=== PATIENT | male | born 1935 | race Caucasian/White ===

== ENCOUNTER → 2016-12-05 | Outpatient (CLI) | payer MEDICARE, OTHER ==
[~2016-12-05] MED LIST: AMLO5TAB2 PO; ASPI81CH3 PO; BUPR75TA5 PO; CARV12.5 PO; COLA50CA PO; DOCU100C PO; FINA5TAB2 PO; FURO20TA2 PO; NEXI40CA PO; NITR4TASL SL; NITROLINGUAL SL; PERC5TAB6 PO; PRAV20TA2 PO; RAMI10CA PO; SPIR25TA2 PO; TAMS0.4C2 PO; TYLE325T5 PO; VITA100072 PO; VITA50003 PO; [UNRECOGNIZED DRUG - CODE] PO
== END ==
LOC: M RAD 11:07
PROVIDERS: ATTEND Physician Assistant
DX: I65.23 Occlusion and stenosis of bilateral carotid arteries (principal)

== ENCOUNTER → 2017-12-27 | Outpatient (REF) | payer MEDICARE, OTHER ==
[2017-12-27 16:57] LABS: BASO % 0.5 % (0.0-1.0); EOS # 0.2 10^3/uL (0.0-0.50); EOS % 3.7 % (0.0-3.0); HEMOGLOBIN 15.1 g/dl (13.5-17.5); IMMATURE GRANULOCYTE % 0.3 % (0-3.0); LYMPH # 1.1 10^3/uL (1.5-4.5); MEAN CORPUSCULAR HEMOGLOBIN 31.5 pg (27.0-33.0); MEAN CORPUSCULAR HGB CONC 35.1 g/dl (32.0-36.5); MEAN CORPUSCULAR VOLUME 89.6 fl (80.0-96.0); MONO # 0.4 10^3/uL (0.0-0.8); MONO % 7.4 % (0.0-5.0); NEUTROPHILS # 4.1 10^3/uL (1.8-7.7); NEUTROPHILS % 69.1 % (36.0-66.0); PLATELET COUNT, AUTOMATED 214 10^3/uL (150-450); RED CELL DISTRIBUTION WIDTH 12.4 % (11.5-14.5)
[2017-12-27 17:13] LABS: ESTIMATED AVERAGE GLUCOSE 134 MG/DL (60-110); HEMOGLOBIN A1c 6.3 %
[2017-12-27 17:34] LABS: ALBUMIN/GLOBULIN RATIO 1.21 (1.00-1.93); ALKALINE PHOSPHATASE 91 U/L (45-117); ALT/SGPT 31 U/L (12-78); ANION GAP 10 MEQ/L (8-16); AST/SGOT 17 U/L (7-37); BILIRUBIN,TOTAL 0.5 MG/DL (0.2-1.0); BLOOD UREA NITROGEN 20 MG/DL (7-18); CALCIUM LEVEL 9.4 MG/DL (8.8-10.2); CARBON DIOXIDE LEVEL 25 MEQ/L (21-32); CHLORIDE LEVEL 106 MEQ/L (98-107); CHOLESTEROL LEVEL 135 MG/DL (<200); CREATININE FOR GFR 1.86 MG/DL (0.70-1.30); GLOMERULAR FILTRATION RATE 37.4 (>35); GLUCOSE, FASTING 142 MG/DL (70-100); HDL CHOLESTEROL 36 MG/DL (>40); LDL CHOLESTEROL 59.8 MG/DL (<100); NON-HDL-C 99 MG/DL; POTASSIUM SERUM 4.6 MEQ/L (3.5-5.1); SODIUM LEVEL 141 MEQ/L (136-145); TOTAL PROTEIN 7.3 GM/DL (6.4-8.2); TRIGLYCERIDES LEVEL 196 MG/DL (<150)
[2017-12-27 22:32] LABS: TOTAL 25(OH) VITAMIN D 86.5 NG/ML (30.0-100.0)
== END ==
LOC: M SFHCCLAY 10:03
DX: I10 Essential (primary) hypertension (principal); E55.9 Vitamin D deficiency, unspecified; Z79.899 Other long term (current) drug therapy
CPT/HCPCS: 84443

== ENCOUNTER → 2018-01-25 | Outpatient (REF) | payer MEDICARE, OTHER | LOC: M SFHCCLAY 10:57 | DX: L97.919 Non-pressure chronic ulcer of unspecified part of right lower leg with unspecified severity (principal) | CPT/HCPCS: 87186 ==

== ENCOUNTER → 2018-02-11 | Outpatient (REF) | payer MEDICARE, OTHER | LOC: M SFHCCAPE 09:53 | DX: L97.919 Non-pressure chronic ulcer of unspecified part of right lower leg with unspecified severity (principal) | CPT/HCPCS: 87070; 87186 ==

== ENCOUNTER → 2018-03-28 | Outpatient (REF) | payer MEDICARE, OTHER ==
[2018-03-28 17:18] LABS: BASO % 0.5 % (0.0-1.0); EOS # 0.3 10^3/uL (0.0-0.50); EOS % 5.2 % (0.0-3.0); HEMATOCRIT 43.1 % (42.0-52.0); HEMOGLOBIN 14.8 g/dl (13.5-17.5); IMMATURE GRANULOCYTE % 0.7 % (0-3.0); LYMPH % 16.7 % (24.0-44.0); MEAN CORPUSCULAR HEMOGLOBIN 30.8 pg (27.0-33.0); MEAN CORPUSCULAR HGB CONC 34.3 g/dl (32.0-36.5); MEAN CORPUSCULAR VOLUME 89.8 fl (80.0-96.0); MONO # 0.4 10^3/uL (0.0-0.8); MONO % 6.8 % (0.0-5.0); NEUTROPHILS % 70.1 % (36.0-66.0); PLATELET COUNT, AUTOMATED 225 10^3/uL (150-450); RED CELL DISTRIBUTION WIDTH 13.4 % (11.5-14.5); WHITE BLOOD COUNT 5.7 10^3/uL (4.0-10.0)
[2018-03-28 17:21] LABS: ALBUMIN 4.1 GM/DL (3.2-5.2); ALBUMIN/GLOBULIN RATIO 1.37 (1.00-1.93); ALKALINE PHOSPHATASE 81 U/L (45-117); ALT/SGPT 33 U/L (12-78); ANION GAP 10 MEQ/L (8-16); AST/SGOT 19 U/L (7-37); BILIRUBIN,TOTAL 0.5 MG/DL (0.2-1.0); BLOOD UREA NITROGEN 19 MG/DL (7-18); CALCIUM LEVEL 9.5 MG/DL (8.8-10.2); CARBON DIOXIDE LEVEL 26 MEQ/L (21-32); CHLORIDE LEVEL 104 MEQ/L (98-107); CHOLESTEROL LEVEL 138 MG/DL (<200); CHOLESTEROL RISK RATIO 3.631 (<5); FREE T4 0.85 NG/DL (0.76-1.46); GLOMERULAR FILTRATION RATE 41.5 (>35); GLUCOSE, FASTING 123 MG/DL (70-100); HDL CHOLESTEROL 38 MG/DL (>40); LDL CHOLESTEROL 65 MG/DL (<100); NON-HDL-C 100 MG/DL; POTASSIUM SERUM 4.6 MEQ/L (3.5-5.1); SODIUM LEVEL 140 MEQ/L (136-145); TOTAL PROTEIN 7.1 GM/DL (6.4-8.2); TRIGLYCERIDES LEVEL 177 MG/DL (<150)
[2018-03-28 17:25] LABS: TOTAL 25(OH) VITAMIN D 108.1 NG/ML (30.0-100.0)
[2018-03-28 17:27] LABS: ESTIMATED AVERAGE GLUCOSE 137 MG/DL (60-110); HEMOGLOBIN A1c 6.4 %
== END ==
LOC: M SFHCCAPE 11:55 → M SFHCCLAY 12:05
DX: E55.9 Vitamin D deficiency, unspecified (principal); I10 Essential (primary) hypertension
CPT/HCPCS: 84443

== ENCOUNTER → 2018-04-03 | Outpatient (REF) | payer MEDICARE, OTHER | LOC: M SFHCCAPE 15:43 | DX: L97.919 Non-pressure chronic ulcer of unspecified part of right lower leg with unspecified severity (principal) | CPT/HCPCS: 87186 ==

== ENCOUNTER 2018-04-05 09:36 | Day surgery (SDC) | payer MEDICARE, OTHER ==
[2018-04-05] MEDS ORDERED: D5W/0.2% SODIUM CHLORIDE 1,000 ML IV ×2 (10:00)
[2018-04-12] MEDS ORDERED: D5W/0.2% SODIUM CHLORIDE 1,000 ML IV ×2 (06:00)
[2018-04-12] MEDS ORDERED: MIDAZOLAM INJ 2 MG/2 ML VIAL (J2250) As Ordered ×2 (14:31)
[2018-04-12] MEDS ORDERED: fentaNYL 100 MCG/2 ML INJECTION (J3010) As Ordered ×4 (14:31→16:00)
[2018-04-12] MEDS ORDERED: PROPOFOL 200 MG/20 ML VIAL As Ordered ×2 (14:31)
[2018-04-12] MEDS ORDERED: LIDOCAINE 2% INJ 100 MG/5 ML SDV (FOR ANES.) As Ordered ×2 (14:31)
[2018-04-12] MEDS: LIDOCAINE W/EPINEPHRINE 1% 20ML VIAL As Ordered ×2 (14:53)
[2018-04-12] MEDS ORDERED: PERCOCET 5MG/325MG TAB As Ordered ×2 (15:34)
[2018-04-12] MEDS: PERCOCET 5MG/325MG TAB PO ×4 (15:36→16:13)
[2018-04-12] MEDS ORDERED: LR 1,000 ML IV ×2 (16:00)
[2018-04-12] MEDS: fentaNYL 100 MCG/2 ML INJECTION (J3010) IV ×8 (16:02→16:17)
[2018-04-12] MEDS: ONDANSETRON 4MG/2ML VIAL (J2405) IV ×2 (16:49)
== END 2018-04-12 18:45 | disposition home or self-care (01) ==
LOC: M SDC 04-12 13:14
DX: I87.2 Venous insufficiency (chronic) (peripheral) (principal); I83.012 Varicose veins of right lower extremity with ulcer of calf; I83.019 Varicose veins of right lower extremity with ulcer of unspecified site; I12.9 Hypertensive chronic kidney disease with stage 1 through stage 4 chronic kidney disease, or unspecified chronic kidney disease; I10 Essential (primary) hypertension; E78.00 Pure hypercholesterolemia, unspecified; R60.0 Localized edema; K21.9 Gastro-esophageal reflux disease without esophagitis; R29.898 Other symptoms and signs involving the musculoskeletal system; M12.9 Arthropathy, unspecified; L97.419 Non-pressure chronic ulcer of right heel and midfoot with unspecified severity; F32.9 Major depressive disorder, single episode, unspecified; R06.02 Shortness of breath; N18.9 Chronic kidney disease, unspecified; N40.0 Benign prostatic hyperplasia without lower urinary tract symptoms; Z88.5 Allergy status to narcotic agent; Z79.899 Other long term (current) drug therapy; Z79.82 Long term (current) use of aspirin; Z86.14 Personal history of Methicillin resistant Staphylococcus aureus infection; Z95.5 Presence of coronary angioplasty implant and graft; Z87.891 Personal history of nicotine dependence
CPT/HCPCS: 36475

== ENCOUNTER → 2018-04-18 | Outpatient (CLI) | payer MEDICARE, OTHER | LOC: M RAD 10:50 | DX: I70.213 Atherosclerosis of native arteries of extremities with intermittent claudication, bilateral legs (principal) | CPT/HCPCS: 93971 ==

== ENCOUNTER → 2018-05-07 | Outpatient (CLI) | payer MEDICARE, OTHER | LOC: M RAD 10:19 | DX: I73.9 Peripheral vascular disease, unspecified (principal) | CPT/HCPCS: 93925 ==

== ENCOUNTER 2018-05-22 19:57 | Inpatient (IN) | payer MEDICARE, OTHER ==
[2018-05-22] MEDS: diphenhydrAMINE INJ 50MG/ML VIAL (J1200) IV (21:25)
[2018-05-22] MEDS: MORPHINE 4 MG/ML 1ML VIAL/SYRINGE (J2270) IV (21:26)
[2018-05-22] MEDS: SENOKOT S TAB PO (23:59)
[2018-05-22] MEDS: DOCUSATE SODIUM 100 MG CAP PO (23:59)
[2018-05-23] MEDS ORDERED: ACETAMINOPHEN TAB 650MG DOSE (2X325MG) PO
[2018-05-23] MEDS ORDERED: ONDANSETRON 4MG/2ML VIAL (J2405) IV
[2018-05-23] MEDS ORDERED: BISACODYL 10 MG SUPP PR
[2018-05-23] MEDS ORDERED: MOM 30ML SUSPENSION UDC PO
[2018-05-23] MEDS: PERCOCET 5MG/325MG TAB PO ×3 (02:14→20:36)
[2018-05-23 06:38] LABS: BASO % 0.3 % (0.0-1.0); EOS # 0.1 10^3/uL (0.0-0.50); EOS % 1.2 % (0.0-3.0); HEMATOCRIT 36.2 % (42.0-52.0); IMMATURE GRANULOCYTE % 0.6 % (0-3.0); LYMPH # 1.4 10^3/uL (1.5-4.5); LYMPH % 15.9 % (24.0-44.0); MEAN CORPUSCULAR HEMOGLOBIN 31.7 pg (27.0-33.0); MEAN CORPUSCULAR HGB CONC 34.8 g/dl (32.0-36.5); MEAN CORPUSCULAR VOLUME 91.2 fl (80.0-96.0); MONO # 0.7 10^3/uL (0.0-0.8); MONO % 7.5 % (0.0-5.0); NEUTROPHILS # 6.7 10^3/uL (1.8-7.7); NEUTROPHILS % 74.5 % (36.0-66.0); PLATELET COUNT, AUTOMATED 228 10^3/uL (150-450); RED BLOOD COUNT 3.97 10^6/uL (4.30-6.10); RED CELL DISTRIBUTION WIDTH 13.1 % (11.5-14.5)
[2018-05-23 06:44] LABS: HEMOGLOBIN 12.6 g/dl (13.5-17.5)
[2018-05-23 07:07] LABS: ANION GAP 9 MEQ/L (8-16); BLOOD UREA NITROGEN 21 MG/DL (7-18); CALCIUM LEVEL 8.7 MG/DL (8.8-10.2); CARBON DIOXIDE LEVEL 23 MEQ/L (21-32); CHLORIDE LEVEL 104 MEQ/L (98-107); CREATININE FOR GFR 1.69 MG/DL (0.70-1.30); GLOMERULAR FILTRATION RATE 41.8 (>35); GLUCOSE, FASTING 133 MG/DL (70-100); POTASSIUM SERUM 4.6 MEQ/L (3.5-5.1); SODIUM LEVEL 136 MEQ/L (136-145)
[2018-05-23] MEDS: DOCUSATE SODIUM 100 MG CAP PO ×2 (08:38→20:34)
[2018-05-23] MEDS: SENOKOT S TAB PO ×2 (08:38→20:34)
[2018-05-24] MEDS: PERCOCET 5MG/325MG TAB PO ×3 (01:43→18:14)
[2018-05-24] MEDS: SENOKOT S TAB PO ×2 (10:46→20:30)
[2018-05-24] MEDS: DOCUSATE SODIUM 100 MG CAP PO ×2 (10:48→20:31)
[2018-05-25] MEDS: SENOKOT S TAB PO (11:10)
[2018-05-25] MEDS: DOCUSATE SODIUM 100 MG CAP PO (11:10)
== END 2018-05-25 14:58 | disposition home or self-care (01) | DRG 909 ==
LOC: M ED INP 23:49 → M PCU 05-23 02:01 → M ED 19:57 → M MSPAV 05-23 18:41
PROVIDERS: Surgery Vascular Surgery
PROC: [UNRECOGNIZED PROCEDURE] (principal; 2018-05-22)
PROC: 047M3D6 (ICD-10-PCS; 2018-05-22)
PROC: B400YZZ Plain Radiography of Abdominal Aorta using Other Contrast (ICD-10-PCS; 2018-05-22)
DX: I97.621 Postprocedural hematoma of a circulatory system organ or structure following other procedure (principal); I70.235 Atherosclerosis of native arteries of right leg with ulceration of other part of foot; I10 Essential (primary) hypertension; E78.00 Pure hypercholesterolemia, unspecified; L97.519 Non-pressure chronic ulcer of other part of right foot with unspecified severity; K21.9 Gastro-esophageal reflux disease without esophagitis; I83.90 Asymptomatic varicose veins of unspecified lower extremity; I70.0 Atherosclerosis of aorta; Z85.038 Personal history of other malignant neoplasm of large intestine; Z90.49 Acquired absence of other specified parts of digestive tract; Z88.8 Allergy status to other drugs, medicaments and biological substances; Z79.82 Long term (current) use of aspirin; Z79.899 Other long term (current) drug therapy

== ENCOUNTER → 2018-05-22 | Outpatient (CLI) | payer MEDICARE, OTHER ==
[~2018-05-22] MED LIST changes: +ALLO100T PO; -AMLO5TAB2 PO; +AMLO5TAB4 PO; +ASPI1TAB15 PO; +BUPR1TAB53 PO; +BUPR300T34 PO; +COLA100C5 PO; -DOCU100C PO; +DOCU100C16 PO; +FLOM0.4C39 PO; +HEPARIN 1,000 UNITS/ML 10ML VIAL (FOR RADIOLOGY& DIALYSIS ONLY) As Ordered ONE; +ISOVUE-300 61% 50ML VIAL (Q9967) As Ordered ONE; +LIDOCAINE 2% MDV 20 ML VIAL As Ordered ONE; +MIDAZOLAM INJ 2 MG/2 ML VIAL (J2250) As Ordered ONE; +PERC5TAB12 PO; -PERC5TAB6 PO; +PRAV40TA2 PO; -RAMI10CA PO; +RAMI1CAP26 PO; +SPIR-10 PO; -SPIR25TA2 PO; +TAMS1CAP17; +TYLE500T78 PO; -VITA50003 PO; +VITA50005 PO; +fentaNYL 100 MCG/2 ML INJECTION (J3010) As Ordered ONE
[2018-05-22 07:46] LABS: BASO # 0.1 10^3/uL (0.0-0.2); BASO % 0.8 % (0.0-1.0); EOS # 0.6 10^3/uL (0.0-0.50); EOS % 7.1 % (0.0-3.0); HEMATOCRIT 42.1 % (42.0-52.0); HEMOGLOBIN 14.9 g/dl (13.5-17.5); LYMPH # 1.4 10^3/uL (1.5-4.5); LYMPH % 15.7 % (24.0-44.0); MEAN CORPUSCULAR HEMOGLOBIN 31.8 pg (27.0-33.0); MEAN CORPUSCULAR HGB CONC 35.4 g/dl (32.0-36.5); MONO # 0.6 10^3/uL (0.0-0.8); MONO % 6.8 % (0.0-5.0); NEUTROPHILS # 5.9 10^3/uL (1.8-7.7); NEUTROPHILS % 68.9 % (36.0-66.0); PLATELET COUNT, AUTOMATED 227 10^3/uL (150-450); RED BLOOD COUNT 4.68 10^6/uL (4.30-6.10); WHITE BLOOD COUNT 8.6 10^3/uL (4.0-10.0)
[2018-05-22 07:54] LABS: CALCIUM LEVEL 8.5 MG/DL (8.8-10.2); CREATININE FOR GFR 1.72 MG/DL (0.70-1.30); GLOMERULAR FILTRATION RATE 40.9 (>35); POTASSIUM SERUM 4.8 MEQ/L (3.5-5.1)
--- NOTE | 2018-06-06 07:55 | REPIR ---
DATE OF PROCEDURE: 05/22/2018 ATTENDING SURGEON: Dr. Alcira Man TRIP MOTOR OPERATOR: Saroj Cuadra and Ruthie Herrera PREOPERATIVE DIAGNOSES: Right lower extremity pain, nonhealing right foot ulcers, right lower extremity venous valvular insufficiency, status post greater saphenous vein radiofrequency ablation and stab phlebectomy of varicose veins, chronic renal insufficiency. POSTOPERATIVE DIAGNOSES: Right lower extremity pain, nonhealing right foot ulcers, right lower extremity venous valvular insufficiency, status post greater saphenous vein radiofrequency ablation and stab phlebectomy of varicose veins, chronic renal insufficiency. PROCEDURE: Aortogram, iliofemoral angiogram, selective right common femoral artery catheter placement right lower extremity angiogram, selective superficial femoral artery catheter placement with right lower extremity angiogram, selective right popliteal artery catheter placement right lower extremity angiogram, right superficial femoral artery angioplasty with 6 x 100 mm balloon right popliteal artery angioplasty with 6 x 100 mm balloon, Mynx closure of the left common femoral arteriotomy. INDICATION: The patient is an 82-year-old male with right lower extremity nonhealing foot ulcers and both arterial and venous insufficiency. The patient has undergone treatment for his venous insufficiency and now undergo angiography with possible angioplasty stent and/or atherectomy. Risks, benefits, and alternative options were discussed with the patient. ANESTHESIA: Was local with sedation with 1 mg of Versed 50 mcg of fentanyl and 10 mL of 2% lidocaine. FLUORO TIME: 5.2 minutes. CONTRAST: 10.5 mL. SEDATION TIME: Was from 09:15 a.m. to 10:08 a.m. for a total of 53 minutes. Sedation was administered by the registered nurse in the room under my direct supervision. Cardiopulmonary monitoring was performed by the nurse in the room under my direct supervision. I will was present for and directed the entire case. HEPARIN: 7000 units. COMPLICATIONS: None. DRAINS: None. SPECIMEN: None. IMPLANTS: Left common femoral arteriotomy closure with a Mynx closure device. PROCEDURE: The patient was taken to the angiography suite, placed supine on the angiography table and prepped and draped in a standard surgical fashion. The left common femoral artery was cannulated with a micropuncture needle after anesthetizing the overlying skin with 2% lidocaine. The micropuncture wire was advanced through the micropuncture needle which was upsized to a micropuncture sheath. A Bentson wire was advanced through the micropuncture sheath which was upsized to 5-Kazakh sheath. An Omni flush catheter was placed in the aorta at the level of diaphragm and an abdominal aortogram was performed. Catheter was pulled down to the level of bifurcation iliac arteries and a pelvic aortogram and iliofemoral angiogram was performed. Catheter was directed over the bifurcation and placed in the right common femoral artery and a selective right common femoral artery angiogram was performed. Catheter was advanced into the superficial femoral artery and a selective right superficial femoral artery angiogram was performed. This showed high grade stenosis at the junction of the superficial femoral and popliteal artery. This was crossed using catheters and wires. A catheter was then placed in the popliteal artery and a selective right popliteal artery angiogram with runoff was performed confirming intraluminal positioning after crossing the high-grade stenosis. The right superficial femoral and popliteal artery were then angioplastied with a 6 x 100 balloon. A completion angiogram showed resolution of the stenoses with excellent flow through the superficial femoral into the popliteal artery and distally with mild to moderate severe tibioperoneal atherosclerotic occlusive disease. Catheters and wires were removed. The sheath was removed and the left common femoral arteriotomy was closed using a Mynx closure device with an additional 10 minutes of adjunctive pressure applied for hemostasis. Dressings were then applied. The patient tolerated the procedure well. All instrument, sponge, and needle counts were correct at the end of the case. There were no complications. Dr. Man was present for and directed the entire case. The patient was transferred to [facility] and subsequent discharged in stable condition. RADIOLOGIC SUPERVISION INTERPRETATION: Aortogram showed the aorta below the diaphragm to be widely patent with some atherosclerotic plaquing. The celiac and superior mesenteric arteries were patent as well as the renal arteries. The infrarenal aorta was patent. The common iliac arteries, external and internal iliac arteries bilaterally were patent. The right common femoral artery was patent as well as the profunda femoris. There was a high-grade stenosis in the right superficial femoral and popliteal arterial junction which was crossed then angioplastied with a 6 x 100 balloon. Completion angiography showed resolution of the stenosis. A Mynx closure was used to close the arteriotomy in the left common femoral artery.
== END | disposition home or self-care (01) ==
LOC: M IRPRO 06:48
PROVIDERS: ATTEND Surgery Vascular Surgery
DX: I70.238 Atherosclerosis of native arteries of right leg with ulceration of other part of lower leg (principal); I70.0 Atherosclerosis of aorta; L97.819 Non-pressure chronic ulcer of other part of right lower leg with unspecified severity; N18.9 Chronic kidney disease, unspecified

== ENCOUNTER → 2018-05-29 | Outpatient (REF) | payer MEDICARE, OTHER ==
[2018-05-29 18:01] LABS: ALBUMIN 3.4 GM/DL (3.2-5.2); ALBUMIN/GLOBULIN RATIO 0.94 (1.00-1.93); ALKALINE PHOSPHATASE 81 U/L (45-117); ALT/SGPT 32 U/L (12-78); ANION GAP 12 MEQ/L (8-16); AST/SGOT 19 U/L (7-37); BILIRUBIN,TOTAL 1.1 MG/DL (0.2-1.0); BLOOD UREA NITROGEN 18 MG/DL (7-18); CARBON DIOXIDE LEVEL 23 MEQ/L (21-32); CHLORIDE LEVEL 104 MEQ/L (98-107); CREATININE FOR GFR 1.91 MG/DL (0.70-1.30); GLOMERULAR FILTRATION RATE 36.3 (>35); GLUCOSE, FASTING 132 MG/DL (70-100); POTASSIUM SERUM 4.6 MEQ/L (3.5-5.1); SODIUM LEVEL 139 MEQ/L (136-145)
[2018-05-29 18:54] LABS: BASO % 0.4 % (0.0-1.0); EOS # 0.5 10^3/uL (0.0-0.50); EOS % 5.7 % (0.0-3.0); HEMATOCRIT 35.9 % (42.0-52.0); HEMOGLOBIN 12.2 g/dl (13.5-17.5); IMMATURE GRANULOCYTE % 0.6 % (0-3.0); LYMPH # 1.1 10^3/uL (1.5-4.5); LYMPH % 12.5 % (24.0-44.0); MEAN CORPUSCULAR VOLUME 91.3 fl (80.0-96.0); MONO # 0.7 10^3/uL (0.0-0.8); NEUTROPHILS # 6.5 10^3/uL (1.8-7.7); NEUTROPHILS % 72.8 % (36.0-66.0); PLATELET COUNT, AUTOMATED 346 10^3/uL (150-450); RED BLOOD COUNT 3.93 10^6/uL (4.30-6.10); RED CELL DISTRIBUTION WIDTH 13.2 % (11.5-14.5); WHITE BLOOD COUNT 8.9 10^3/uL (4.0-10.0)
== END ==
LOC: M SFHCCAPE 12:24
DX: T14.8XXA Other injury of unspecified body region, initial encounter (principal); Y92.9 Unspecified place or not applicable
CPT/HCPCS: 80053

== ENCOUNTER 2018-06-20 15:22 | Emergency (ER) | payer MEDICARE, OTHER ==
[~2018-06-20] VITALS: Ht 180.3 cm; Wt 119.5 kg
[~2018-06-20 15:22] MED LIST changes: -AMLO5TAB4 PO; +AMLO5TAB6 PO; -HEPARIN 1,000 UNITS/ML 10ML VIAL (FOR RADIOLOGY& DIALYSIS ONLY) As Ordered ONE; -ISOVUE-300 61% 50ML VIAL (Q9967) As Ordered ONE; -LIDOCAINE 2% MDV 20 ML VIAL As Ordered ONE; -MIDAZOLAM INJ 2 MG/2 ML VIAL (J2250) As Ordered ONE; -TAMS1CAP17; -fentaNYL 100 MCG/2 ML INJECTION (J3010) As Ordered ONE
[2018-06-20] MEDS ORDERED: TAMS1CAP17 (15:32)
[2018-06-20 17:25] LABS: HEMATOCRIT 41.4 % (42.0-52.0); HEMOGLOBIN 14.5 g/dl (13.5-17.5); MEAN CORPUSCULAR HEMOGLOBIN 31.4 pg (27.0-33.0); MEAN CORPUSCULAR VOLUME 89.6 fl (80.0-96.0); PLATELET COUNT, AUTOMATED 263 10^3/uL (150-450); RED BLOOD COUNT 4.62 10^6/uL (4.30-6.10)
[2018-06-20 17:54] LABS: CALCIUM LEVEL 9.2 MG/DL (8.8-10.2); CREATININE FOR GFR 1.74 MG/DL (0.70-1.30); GLOMERULAR FILTRATION RATE 40.4 (>35); POTASSIUM SERUM 4.4 MEQ/L (3.5-5.1)
[2018-06-20 19:13] VITALS: BP 139/75
--- NOTE | 2018-06-20 19:29 | REPVR ---
EXAM: US Duplex Left Lower Extremity Arteries EXAM DATE/TIME: 06/20/2018 6:06 PM CLINICAL HISTORY: 82 years old, male; Pain; Pelvic pain; Prior surgery; Surgery date: <1 month; Surgery type: Angio; Additional info: Eval for pseudoaneurysm, hematoma, hernia post vasc surgery TECHNIQUE: Real-time duplex ultrasound scan of the Left lower extremity arteries integrating B-mode two-dimensional vascular structure, Doppler spectral analysis and color flow Doppler imaging. COMPARISON: US BLADDER 10/13/2014 2:19 PM FINDINGS: Left common femoral artery: Patent. No evidence of groin pseudoaneurysm. Soft tissues: Sonographic interrogation of the left groin demonstrates an avascular fluid collection measuring 5.0 x 15.3 x 5.1 cm. This most likely represents hematoma. This previously measured 10.3 x 6.2 x 5.1 cm. No left inguinal hernia identified. IMPRESSION: 1. No evidence of pseudoaneurysm. 2. Increase in size of a left groin hematoma. Electronically signed by: Tricia Booker On 06/20/2018 19:29:37 PM
== END 2018-06-20 19:53 | disposition home or self-care (01) ==
LOC: M ED 15:22
DX: M96.840 Postprocedural hematoma of a musculoskeletal structure following a musculoskeletal system procedure (principal); K57.30 Diverticulosis of large intestine without perforation or abscess without bleeding; N40.0 Benign prostatic hyperplasia without lower urinary tract symptoms; F32.9 Major depressive disorder, single episode, unspecified; Z90.49 Acquired absence of other specified parts of digestive tract; Z79.82 Long term (current) use of aspirin; Z79.899 Other long term (current) drug therapy; Z88.8 Allergy status to other drugs, medicaments and biological substances

== ENCOUNTER → 2018-06-24 | Outpatient (CLI) | payer MEDICARE, OTHER ==
[~2018-06-24] MED LIST changes: +TAMS1CAP17
--- NOTE | 2018-06-24 13:29 | REP ---
Emergency right lower extremity duplex arterial ultrasound: History: Peripheral vascular disease. Comparison study May 07, 2018. On May 22, 2018, the patient underwent right superficial femoral artery angioplasty and right popliteal artery angioplasty procedure. Sonographic findings: Improvement in flow is noted in the right lower extremity arteries since prior study. Previously noted mid SFA stenosis is resolved by Doppler velocity assessment. Previously noted posterior tibial artery distal occlusion is no longer seen. Biphasic and triphasic waveforms are noted to the level of the popliteal artery and biphasic and monophasic waveforms are noted in the calf arteries. The ankle brachial index on the right is 0.99. Velocity chart right lower extremity arteries: CF A 103 cm/S Profunda 84.5 Proximal SFA 90 Mid SFA 108 Distal SFA 65 Popliteal 84 Proximal AT A 42 Tibioperoneal trunk 53 Proximal COMPOUND SPECIALIST 26 Distal COMPOUND SPECIALIST 14 Distal AT A 48. Electronically Signed by Alonso Franklin MD 06/24/2018 01:20 P
== END ==
LOC: M RAD 11:06
PROVIDERS: ATTEND Surgery Vascular Surgery
DX: I73.9 Peripheral vascular disease, unspecified (principal)

== ENCOUNTER 2018-09-17 20:52 | Inpatient (IN) | payer MEDICARE, OTHER ==
[~2018-09-17] VITALS: Ht 177.8 cm; Wt 106.8 kg
[2018-09-17] MEDS ORDERED: NS 1,000 ML IV ONE (21:45)
--- NOTE | 2018-09-17 22:18 | ECGEPIP ---
Stationary ECG Study [facility] - ED Test Date: 2018-09-17 Pat Name: CATHERINE NUNEZ Department: Room: - Gender: M Director Of Corporate Marketing: : 1935 Requested By: SHANTA Eli Order Number: [id number] Reading MD: Jay Brown Measurements Intervals [place] Rate: 108 P: [place]: 0 QRS: 42 QRSD: 112 T: 52 QT: 302 QTc: 406 Interpretive Statements ATRIAL FLUTTER/TACHYCARDIA WITH RAPID VENTRICULAR RESPONSE MODERATE INTRAVENTRICULAR CONDUCTION DELAY RATE CHANGE COMPARED TO 02/15/16 Electronically Signed On 09-17-2018 22:18:06 EDT by Jay Brown
[2018-09-17 22:27] LABS: BASO % 0.2 % (0.0-1.0); HEMATOCRIT 38.6 % (42.0-52.0); HEMOGLOBIN 13.3 g/dl (13.5-17.5); LYMPH # 0.3 10^3/uL (1.5-4.5); LYMPH % 2.6 % (24.0-44.0); MEAN CORPUSCULAR HEMOGLOBIN 29.4 pg (27.0-33.0); MEAN CORPUSCULAR HGB CONC 34.5 g/dl (32.0-36.5); MEAN CORPUSCULAR VOLUME 85.4 fl (80.0-96.0); MONO # 0.3 10^3/uL (0.0-0.8); NEUTROPHILS # 10.2 10^3/uL (1.8-7.7); PLATELET COUNT, AUTOMATED 174 10^3/uL (150-450); RED BLOOD COUNT 4.52 10^6/uL (4.30-6.10)
[2018-09-17 22:41] LABS: INR 1.15; PROTHROMBIN TIME 14.9 SECONDS (12.1-14.4)
[2018-09-17 22:42] LABS: PARTIAL THROMBOPLASTIN TIME 42.3 SECONDS (25.4-37.6)
[2018-09-17 22:50] LABS: ALBUMIN 2.7 GM/DL (3.2-5.2); BILIRUBIN,DIRECT 0.2 MG/DL (0.0-0.2); BILIRUBIN,TOTAL 0.6 MG/DL (0.2-1.0); CALCIUM LEVEL 8.7 MG/DL (8.8-10.2); CREATININE FOR GFR 2.56 MG/DL (0.70-1.30); GLOMERULAR FILTRATION RATE 25.9 (>35); MB/CK RELATIVE INDEX 1.98 (< OR =4); POTASSIUM SERUM 4.9 MEQ/L (3.5-5.1); TOTAL PROTEIN 6.3 GM/DL (6.4-8.2); TROPONIN I 0.33 NG/ML (< 0.10)
--- NOTE | 2018-09-17 23:22 | REP ---
Clinical: Acute abdominal pain. Technique: Axial noncontrast images from the lung bases to the pubic symphysis coronal and sagittal re-formations. Comparison: 06/21/2005. Findings: Lung bases demonstrate mild chronic fibroatelectatic changes. Liver demonstrates multiple hypodensities measuring up to approximately 3.5 cm and compatible with cysts. Spleen, pancreas, gallbladder, bilateral adrenal glands and kidneys are essentially normal for noncontrast examination. The enteric system is without obstruction or acute inflammatory process. The prostate gland is significantly enlarged with mass effect on the base of the bladder measures greater than 6.8 cm diameter the bladder is otherwise unremarkable. Small pelvic sidewall lymph nodes are identified and nonspecific although prostate cancer must be considered. No ascites. No free air. No intraperitoneal adenopathy. Atherosclerotic changes to the aorta and vasculature without aneurysm or dissection. The osseous structures demonstrate degenerative appearing changes without focal osseous abnormality. Impression: 1. Hepatic hypodensities up to 3.5 cm similar to prior examination and consistent with hepatic cysts. 2. Significantly enlarged prostate gland measuring greater than 6.8 cm diameter with mass effect on the base of the bladder along with pelvic sidewall lymph nodes concerning for the possibility of prostate cancer. 3. Atherosclerotic changes to the vasculature without aneurysm. 4. No further acute abdominopelvic pathology appreciated. Electronically Signed by Lamin Orantes MD 09/17/2018 11:14 P
[2018-09-18 02:06] LABS: TROPONIN I 0.39 NG/ML (< 0.10)
[2018-09-18] MEDS ORDERED: cefTRIAXone SOD 1 GM in D5W MINI-BAG PLUS 50 ML IV ONE (02:30)
[2018-09-18] MEDS ORDERED: NS 1,000 ML IV ONE (02:30)
[2018-09-18] MEDS ORDERED: ASPI81TAEC PO (03:04)
[2018-09-18] MEDS ORDERED: FLOM0.4C39 PO (03:04)
[2018-09-18] MEDS ORDERED: MOM 30ML SUSPENSION UDC PO PRN (03:15)
[2018-09-18] MEDS ORDERED: DOCUSATE SODIUM 100 MG CAP PO PRN (03:15)
--- NOTE | 2018-09-18 03:27 | HPEPDOC ---
[facility] Medical History & Physical Date of Admission Sep 18, 2018 Primary Care Physician: BAYLEE GARCIA PA-C Attending Physician: AMY PETERSON MD History and Physical CHIEF COMPLAINT: Dysuria and urinary frequency HISTORY OF PRESENT ILLNESS: Patient is an 82-year-old male with past medical history enlarged prostate concerning for cancer, history of colon cancer status post colectomy, PPD, hypertension presented to ER with complaint of dysuria, constipation and urinary frequency for the past several weeks associated weight loss. Patient was supposed to follow up with urology as outpatient later today but had to come in due to persistent symptoms. Reportedly has not had a bowel movement in about 1 week with concerned that the enlarged prostate is causing compression on the colon as well as leading to symptoms of urinary hesitation. He has been urinating frequently with feelings of urgency but minimal urine output. In ER, patient was not found to have urinary retention at this time but does note to have an CB on CKD as well as urine consistent with UTI. He also reports chills but otherwise no fevers or any other specific complaints. PAST MEDICAL HISTORY: 1. Prostate enlargement with concern for carcinoma. 2. Lung cancer that is post colectomy. 3. Hypertension. 4. PVD PAST SURGICAL HISTORY: 1. Colectomy. 2. Lower extremity stent placement for PPD. 3. Knee surgery 2. 4. Shoulder surgery SOCIAL HISTORY: Denies current tobacco, alcohol or illicit drug use. FAMILY HISTORY: None noted ALLERGIES: Meperidine REVIEW OF SYSTEMS: General: Denies fever and chills Eyes: Denies visual changes/pain HENT: Denies hearing changes, discharge, sore throat Cardiovascular: denies chest pain, palpitations Pulmonary: no cough, dyspnea, wheezing GI: denies nausea, vomiting, abdominal pain : denies dysuria, urinary frequency Neuro: denies numbness or weakness HOME MEDICATIONS: Please see below. PHYSICAL EXAMINATION: General: No acute distress, Alert Eyes: Normal sclera, EOMI, HO HENT: Atraumatic, neck supple, moist mucous membranes Cardiovascular: Normal rate, normal rhythm. No murmurs appreciated. Pulmonary: Clear to auscultation b/l, no wheezing GI: Soft, nontender, nondistended Skin: Warm and dry Neuro: CN grossly intact. No focal deficits. Strengths equal b/l. Psych: oriented x 3 LABORATORY DATA: See below. IMAGING: CT abdomen/Pelvis- Impression: 1. Hepatic hypodensities up to 3.5 cm similar to prior examination and consistent with hepatic cysts. 2. Significantly enlarged prostate gland measuring greater than 6.8 cm diameter with mass effect on the base of the bladder along with pelvic sidewall lymph nodes concerning for the possibility of prostate cancer. 3. Atherosclerotic changes to the vasculature without aneurysm. 4. No further acute abdominopelvic pathology appreciated. MICROBIOLOGY: Please see below. ASSESSMENT AND PLAN: 1. UTI - UA consistent with UTI. - Continue Rocephin for now, follow-up urine culture. - IV fluids. 2. Prostate enlargement - Concern for malignancy given the enlarged lymph nodes and CT findings. - Supposed to follow up with Dr. Pilar Malik as outpatient. - Noted to not have urinary retention at this time. Consider Valenzuela catheter placement if needed as well as urology consult if obstruction does occur and symptoms does not improve after treatment for UTI. Otherwise can follow-up with urology as outpatient. 3. hx colon cancer s/p colectomy - Not following with an oncologist. - To poorly has no issues since surgery. 4. Hypertension - Normally well controlled and systolic blood pressure less than 120 at home. - Currently harboring in the 100s range, we'll hold home antihypertensive at this point. - We'll resume once blood pressure is a little higher. 5. PVD - continue stockings and current home management. Patient is high risk due to UTI with SIRS and suspected prostate cancer. Estimated length of stay 2 days with expected disposition to home. Vital Signs Vital Signs Date Time Temp Pulse Resp B/P (MAP) Pulse Ox O2 Delivery O2 Flow Rate FiO2 09/18/18 02:45 75 106/58 (74) 95 09/17/18 23:30 18 09/17/18 20:59 97.8 Room Air Laboratory Data Labs 24H Laboratory Tests 2 09/17/18 22:17: Immature Granulocyte % (Auto) 1.2, White Blood Count 11.0H, Red Blood Count 4.52, Hemoglobin 13.3L, Hematocrit 38.6L, Mean Corpuscular Volume 85.4, Mean Corpuscular Hemoglobin 29.4, Mean Corpuscular Hemoglobin Concent 34.5, Red Cell Distribution Width 13.8, Platelet Count 174, Neutrophils (%) (Auto) 93.0H, Lymphocytes (%) (Auto) 2.6L, Monocytes (%) (Auto) 3.0, Eosinophils (%) (Auto) 0.0, Basophils (%) (Auto) 0.2, Neutrophils # (Auto) 10.2H, Lymphocytes # (Auto) 0.3L, Monocytes # (Auto) 0.3, Eosinophils # (Auto) 0.0, Basophils # (Auto) 0.0, Nucleated Red Blood Cells % (auto) 0.0, Prothrombin Time 14.9H, Prothromb Time International Ratio 1.15, Activated Partial Thromboplast Time 42.3H, Anion Gap 11, Glomerular Filtration Rate 25.9L, Lactic Acid Level 2.2*H, Calcium Level 8.7L, Aspartate Amino Transf (AST/SGOT) 28, Alanine Aminotransferase (ALT/SGPT) 34, Alkaline Phosphatase 146H, Total Bilirubin 0.6, Direct Bilirubin 0.2, Total Creatine Kinase 126, Creatine Kinase MB 2.0, Creatine Kinase MB Relative Index 1.98, Troponin I 0.33H, Total Protein 6.3L, Albumin 2.7L, Albumin/Globulin Ratio 0.75L, Lipase 132 09/18/18 00:40: Urine Color KOLBY, Urine Appearance TURBIDH, Urine pH 5.0, Urine Specific Hilbert 1.025, Urine Protein 2+H, Urine Glucose (UA) NEGATIVE, Urine Ketones TRACEH, Urine Blood 2+H, Urine Nitrite NEGATIVE, Urine Bilirubin NEGATIVE, Urine Urobilinogen 2.0H, Urine Leukocyte Esterase 2+H, Urine WBC (Auto) TNTCH, Urine RBC (Auto) 73H, Urine Hyaline Casts (Auto) 0, Urine Bacteria (Auto) 2+H, Urine Squamous Epithelial Cells 2, Urine Transitional Epithelial Cells 4, Urine Mucus (Auto) SMALL, Urine Sperm (Auto) 09/18/18 00:53: Total Creatine Kinase 130, Creatine Kinase MB 3.0, Creatine Kinase MB Relative Index 2.00, Troponin I 0.39H 09/18/18 02:42: Lactic Acid Followup at 4 Hours 1.3 CBC/BMP Laboratory Tests 09/17/18 22:17 Red Blood Count 4.52, Mean Corpuscular Volume 85.4, Mean Corpuscular Hemoglobin 29.4, Mean Corpuscular Hemoglobin Concent 34.5, Red Cell Distribution Width 13.8, Neutrophils (%) (Auto) 93.0 H, Lymphocytes (%) (Auto) 2.6 L, Monocytes (%) (Auto) 3.0, Eosinophils (%) (Auto) 0.0, Basophils (%) (Auto) 0.2, Neutrophils # (Auto) 10.2 H, Lymphocytes # (Auto) 0.3 L, Monocytes # (Auto) 0.3, Eosinophils # (Auto) 0.0, Basophils # (Auto) 0.0 Microbiology Microbiology 09/17/18 Blood Culture, Received Pending 09/17/18 Blood Culture, Received Pending 09/18/18 Urine Culture, Received Pending Home Medications Scheduled Allopurinol (Allopurinol) 100 Mg Tab, 200 MG PO DAILY Amlodipine Besylate (Amlodipine Besylate) 5 Mg Tab, 5 MG PO DAILY Aspirin (Aspirin EC) 81 Mg Tabec, 81 MG PO QHS Bupropion HCl (Bupropion HCl Xl) 300 Mg Tab, 300 MG PO DAILY Carvedilol (Carvedilol) 12.5 Mg Tab, 12.5 MG PO BID Esomeprazole Magnesium Trihydr (Nexium) 40 Mg Cap, 40 MG PO QHS Finasteride (Finasteride) 5 Mg Tab, 5 MG PO DAILY Furosemide (Furosemide) 20 Mg Tab, 20 MG PO DAILY Pravastatin Sod (Pravastatin Sodium) 40 Mg Tab, 60 MG PO QHS Spironolactone (Spironolactone) 25 Mg Tab, 12.5 MG PO DAILY Tamsulosin Hydrochloride (Flomax) 0.4 Mg Cap, 0.4 MG PO QHS Scheduled PRN Docusate Sodium (Colace) 100 Mg Cap, 100 MG PO DAILY PRN for CONSTIPATION Nitroglycerin (Nitrostat) 0.4 Mg Subl, 0.4 MG SL NITRO PRN for CHEST PAIN Allergies Coded Allergies: meperidine (Verified Allergy, Unknown, 09/17/18) AMY PETERSON MD Sep 18, 2018 03:27
[2018-09-18 04:15] VITALS: BP 132/66
[2018-09-18] MEDS: NS 1,000 ML IV SCH ×3 (04:30→23:35)
[2018-09-18] MEDS: HEPARIN SOD (PORCINE) 5000 UNITS/ML VIAL SC SCH ×3 (05:10→20:58)
[2018-09-18 06:00] VITALS: BP 138/71
[2018-09-18] MEDS ORDERED: FUROSEMIDE 20 MG TAB PO SCH (09:00)
[2018-09-18 09:22] LABS: HEMATOCRIT 34.8 % (42.0-52.0); HEMOGLOBIN 11.7 g/dl (13.5-17.5); MEAN CORPUSCULAR HGB CONC 33.6 g/dl (32.0-36.5); MEAN CORPUSCULAR VOLUME 86.4 fl (80.0-96.0); PLATELET COUNT, AUTOMATED 167 10^3/uL (150-450); RED BLOOD COUNT 4.03 10^6/uL (4.30-6.10); WHITE BLOOD COUNT 10.8 10^3/uL (4.0-10.0)
[2018-09-18 09:37] LABS: CALCIUM LEVEL 8.1 MG/DL (8.8-10.2); CREATININE FOR GFR 2.23 MG/DL (0.70-1.30); GLOMERULAR FILTRATION RATE 30.3 (>35); POTASSIUM SERUM 4.8 MEQ/L (3.5-5.1)
[2018-09-18] MEDS: DOCUSATE SODIUM 100 MG CAP PO SCH ×2 (10:01→20:57)
[2018-09-18] MEDS: ALLOPURINOL 100 MG TAB PO SCH (10:01)
[2018-09-18] MEDS: buPROPion **XL** TABLET 150MG (WELLBUTRIN XL) PO SCH (10:01)
[2018-09-18] MEDS: FINASTERIDE 5 MG TAB PO SCH (10:01)
[2018-09-18 14:00] VITALS: BP 135/75
[2018-09-18] MEDS: ACETAMINOPHEN TAB 650MG DOSE (2X325MG) PO PRN (16:56)
--- NOTE | 2018-09-18 18:10 | CR ---
DATE OF CONSULTATION: 09/18/2018 REASON FOR CONSULTATION: Urinary retention. Fernandez Ozuna is an 82-year-old male with a longstanding history of bladder outward obstruction who has been managed with Flomax and Proscar for a number of years. He presented to the emergency room with complaint of worsening dysuria as well as frequency for a number of weeks. He has also described significant constipation with weight loss. CT scan of the abdomen was performed, which revealed a markedly enlarged prostate, as well as some pelvic lymph nodes, thus prompting urological consultation. Of note, the patient had a PSA drawn as well, which was 5.2. The patient describes nocturia times 4-5 on an average night. He describes moderate urgency with leakage. He describes significant hesitancy, a poor stream with a fairly abrupt cutoff and a sense of poor emptying of the bladder. He has been having some mild to moderate dysuria of a few weeks' duration as well. He denies any gross hematuria. He denies any recent urinary infections or prior urologic surgery. PAST MEDICAL HISTORY: Significant for: 1. Colon cancer status post colectomy. 2. Hypertension. 3. Peripheral vascular disease. PAST SURGICAL HISTORY: Significant for: 1. The aforementioned colectomy. 2. Lower extremity stents. 3. Bilateral knee surgery. 4. Shoulder surgery. MEDICATIONS ON ADMISSION: Include: - allopurinol - amlodipine - aspirin - bupropion - carvedilol - Nexium - Proscar - Lasix - Pravastatin - spironolactone - Flomax He claims to be allergic to DEMEROL. PHYSICAL EXAMINATION: He is a fairly well-appearing male lying in bed in no acute distress. His abdomen is somewhat protuberant. He has some suprapubic fullness and tenderness, so the bladder is not clearly palpable. His phallus is uncircumcised, without any lesions. Testes descended bilaterally and nontender. Rectal examination revealed a snug rectum and a prostate that was extremely deep, but appeared to be at least 50 grams in size and benign in character. LABORATORY STUDIES: Reveal a BUN and creatinine of 50/2.6. Hematocrit 38.6 with a hemoglobin of 13.3 and a white blood cell count of 11,000. His urinalysis revealed too numerous to count white blood cells and red cells, 2+ bacteria per high powered field. A bladder scan was being performed as I arrived, revealed more than 600 mL in the patient's bladder; therefore, I chose to place the Valenzuela catheter myself. The urethral meatus was a little bit snug, but I was able to pass a 16-Mongolian catheter into the bladder, where more than 600 mL of clear yellow urine was obtained. ASSESSMENT: Urinary retention with renal failure in an 82-year-old male with a markedly enlarged prostate, mild elevation of the PSA and some pelvic lymphadenopathy. PLAN: Is to leave the catheter in place and allow bladder decompression. Will give him a trial of voiding at some point after the weekend and replace the catheter as needed. The patient will, in all likelihood, need some type of surgical intervention. I will not be at [facility] at that time, but will pass it along to the regular urologist in [facility], Dr. Neil, to continue the patient's care. Thank you very much for this consultation. I will be happy to follow along with you.
[2018-09-18] MEDS: PRAVASTATIN 20 MG TAB PO SCH (20:57)
[2018-09-18] MEDS: TAMSULOSIN 0.4 MG CAP PO SCH (20:58)
[2018-09-18] MEDS: cefTRIAXone SOD 1 GM in D5W MINI-BAG PLUS 50 ML IV SCH (20:58)
[2018-09-18] MEDS: ASPIRIN 81 MG ENTERIC TAB PO SCH (20:58)
[2018-09-18] MEDS: PANTOPRAZOLE 40MG TAB (PROTONIX) PO SCH (20:58)
[2018-09-18] MEDS ORDERED: oxyBUTYnin 5 MG TAB PO ONE (21:15)
[2018-09-18 22:00] VITALS: BP 144/81
[2018-09-19 02:00] VITALS: BP 139/73
[2018-09-19] MEDS: ACETAMINOPHEN TAB 650MG DOSE (2X325MG) PO PRN (02:46)
[2018-09-19 06:00] VITALS: BP 140/83
[2018-09-19] MEDS: HEPARIN SOD (PORCINE) 5000 UNITS/ML VIAL SC SCH ×3 (06:47→22:10)
[2018-09-19 06:58] LABS: HEMATOCRIT 34.7 % (42.0-52.0); HEMOGLOBIN 11.6 g/dl (13.5-17.5); MEAN CORPUSCULAR HEMOGLOBIN 28.9 pg (27.0-33.0); MEAN CORPUSCULAR HGB CONC 33.4 g/dl (32.0-36.5); MEAN CORPUSCULAR VOLUME 86.3 fl (80.0-96.0); PLATELET COUNT, AUTOMATED 176 10^3/uL (150-450); RED BLOOD COUNT 4.02 10^6/uL (4.30-6.10); WHITE BLOOD COUNT 7.9 10^3/uL (4.0-10.0)
[2018-09-19 07:32] LABS: CALCIUM LEVEL 8.3 MG/DL (8.8-10.2); CREATININE FOR GFR 1.32 MG/DL (0.70-1.30); GLOMERULAR FILTRATION RATE 55.6 (>35); POTASSIUM SERUM 4.2 MEQ/L (3.5-5.1)
[2018-09-19] MEDS: FINASTERIDE 5 MG TAB PO SCH (09:11)
[2018-09-19] MEDS: buPROPion **XL** TABLET 150MG (WELLBUTRIN XL) PO SCH (09:12)
[2018-09-19] MEDS: DOCUSATE SODIUM 100 MG CAP PO SCH ×2 (09:12→22:10)
[2018-09-19] MEDS: ALLOPURINOL 100 MG TAB PO SCH (09:12)
[2018-09-19] MEDS: PHENAZOPYRIDINE 100 MG TAB PO SCH ×3 (10:14→22:11)
--- NOTE | 2018-09-19 11:59 | IPNPDOC ---
Text Note Date of Service The patient was seen on 09/18/18. NOTE S: pt examined at bedside. Bladder scan had revealed he was retaining 600ml. He feels much improved today and feels the Valenzuela placed yesterday is helping alleviate pelvic pressure. He had some bladder spasms overnight, no other complaints. No f/c/n/v. PE: Vitals: see below General: NAD, A&O, resting comfortably HEENT: NCAT, EOMI, anicteric sclera, MMM CV: distant sounds, RRR RESP: CTAB, no w/r/r/ ABD: obese, soft, NT, ND. Benign EXTREMITIES: 2+ radial pulses b/l, able to move all extremities NEURO: no deficits or acute changes : Valenzuela in place with clear yellow o/p. Mild pelvic pressure to palpation A/P: 82 yo M with hx of enlarge prostate diagnosed over 20 yrs ago for which he was already taking Flomax & Finasteride, presented with difficulty and painful voiding over past few months that recently worsened in the past week along with pelvic pressure. Associated with chills, unintentional 20lb wt loss over past 1 month, decreased appetite, and alternating constipation and diarrhea. 1. Enlarged Prostate * 6.8 cm prostate with mass effect to the base of bladder and pelvic sidewall with positive lymph nodes on admission CT * Marginally elevated PSA. Given his other symptoms, concern for malignancy is present. This was discussed in depth with patient yesterday and again today, all questions answered * Urology consulted. Appreciate Dr. Pryor's input: recommend to continue monitoring Valenzuela output and likely do voiding trial next week * Currently awaiting urine and blood cultures. Will likely DC home with Valenzuela, to follow-up outpatient in urology clinic 2. UTI * likely 2/2 urinary obstruction from enlarged prostate * continue on ceftriaxone day 2 * Awaiting urine culture & sensitivity 3. Positive blood culture x1 * First blood culture preliminary + gram-negative rods. Blood culture negative at 24 hours * Patient is clinically improving, afebrile, normal WBC * May be 2/2 suspected Escherichia coli UTI. Repeat blood culture pending. Continue monitoring 4. Colon cancer * S/P colectomy 35 years ago 5. Hypertension * Controlled on current regimen 6. PVD * S/P bilateral lower extremity stents * Continue aspirin 7. Depression * Stable, continue bupropion 8. GERD * Continue Protonix DVT ppx: heparin sc DISPO: pending blood cultures and sensitivities, PT. VS,Fishbone, I+O VS, Fishbone, I+O Laboratory Tests 09/17/18 22:17 Red Blood Count 4.52, Mean Corpuscular Volume 85.4, Mean Corpuscular Hemoglobin 29.4, Mean Corpuscular Hemoglobin Concent 34.5, Red Cell Distribution Width 13.8, Neutrophils (%) (Auto) 93.0 H, Lymphocytes (%) (Auto) 2.6 L, Monocytes (%) (Auto) 3.0, Eosinophils (%) (Auto) 0.0, Basophils (%) (Auto) 0.2, Neutrophils # (Auto) 10.2 H, Lymphocytes # (Auto) 0.3 L, Monocytes # (Auto) 0.3, Eosinophils # (Auto) 0.0, Basophils # (Auto) 0.0 09/18/18 08:13 Red Blood Count 4.03 L, Mean Corpuscular Volume 86.4, Mean Corpuscular Hemoglobin 29.0, Mean Corpuscular Hemoglobin Concent 33.6, Red Cell Distribution Width 14.0, Calcium Level 8.1 L Vital Signs Date Time Temp Pulse Resp B/P (MAP) Pulse Ox O2 Delivery O2 Flow Rate FiO2 09/18/18 06:00 97.0 72 19 138/71 (93) 98 09/17/18 20:59 Room Air I&O- Last 24 Hours up to 6 AM 09/18/18 06:00 Intake Total 480 ml Balance 480 ml GME ATTESTATION GME ATTESTATION My faculty preceptor for this patient encounter was physically present during the encounter and was fully available. All aspects of the patient interview, examination, medical decision making process, and medical care plan development were reviewed and approved by the faculty preceptor. The faculty preceptor is aware and concurs with the plan as stated in the body of this note and will attest to such by his/her cosignature. MODESTA ESTRADA DO Sep 18, 2018 10:52
[2018-09-19 14:00] VITALS: BP 137/75
--- NOTE | 2018-09-19 14:11 | IPN ---
DATE OF SERVICE: 09/19/2018 Fernandez Ozuna was admitted yesterday in urinary retention. A Valenzuela catheter was placed with roughly 650 mL returned. This morning, the patient is complaining of catheter discomfort but is otherwise feeling better. His physical examination is unchanged. Laboratory studies reveal a hematocrit 34.7, white count 11.9 down from 10.8 yesterday, BUN and creatinine improves significantly down to 33/1.3 from 52/2.2. Urine culture is pending. Blood cultures thus far have failed to reveal any bacterial growth. ASSESSMENT: Urinary retention with renal failure, resolving with Valenzuela catheter decompression. PLAN: Plan is to leave the catheter in for a few more days to see where his creatinine tamara is at. Will consider giving him a trial of voiding at that time. Thank you very much for this consultation. I will be happy to follow along with you.
[2018-09-19 22:00] VITALS: BP 135/73
[2018-09-19] MEDS: cefTRIAXone SOD 1 GM in D5W MINI-BAG PLUS 50 ML IV SCH (22:08)
[2018-09-19] MEDS: PRAVASTATIN 20 MG TAB PO SCH (22:10)
[2018-09-19] MEDS: PANTOPRAZOLE 40MG TAB (PROTONIX) PO SCH (22:11)
[2018-09-19] MEDS: TAMSULOSIN 0.4 MG CAP PO SCH (22:11)
[2018-09-19] MEDS: ASPIRIN 81 MG ENTERIC TAB PO SCH (22:11)
[2018-09-20 02:00] VITALS: BP 145/80
[2018-09-20] MEDS: PHENAZOPYRIDINE 100 MG TAB PO SCH (05:38)
[2018-09-20] MEDS: HEPARIN SOD (PORCINE) 5000 UNITS/ML VIAL SC SCH (05:38)
[2018-09-20 06:00] VITALS: BP 136/80
[2018-09-20 06:43] LABS: HEMATOCRIT 35.6 % (42.0-52.0); HEMOGLOBIN 11.7 g/dl (13.5-17.5); MEAN CORPUSCULAR HEMOGLOBIN 28.4 pg (27.0-33.0); MEAN CORPUSCULAR HGB CONC 32.9 g/dl (32.0-36.5); MEAN CORPUSCULAR VOLUME 86.4 fl (80.0-96.0); PLATELET COUNT, AUTOMATED 188 10^3/uL (150-450); RED BLOOD COUNT 4.12 10^6/uL (4.30-6.10)
[2018-09-20 07:04] LABS: CALCIUM LEVEL 8.9 MG/DL (8.8-10.2); CREATININE FOR GFR 1.24 MG/DL (0.70-1.30); GLOMERULAR FILTRATION RATE 59.7 (>35); POTASSIUM SERUM 4.3 MEQ/L (3.5-5.1)
[2018-09-20 08:00] VITALS: BP 130/72
[2018-09-20] MEDS ORDERED: CEFDINIR 300 MG CAP (OMNICEF) PO SCH (09:00)
[2018-09-20] MEDS ORDERED: CEFD300CAP PO (09:14)
[2018-09-20] MEDS: FINASTERIDE 5 MG TAB PO SCH (09:28)
[2018-09-20] MEDS: ALLOPURINOL 100 MG TAB PO SCH (09:28)
[2018-09-20] MEDS: DOCUSATE SODIUM 100 MG CAP PO SCH (09:29)
[2018-09-20] MEDS: buPROPion **XL** TABLET 150MG (WELLBUTRIN XL) PO SCH (09:29)
--- NOTE | 2018-09-20 11:21 | DS.PDOC ---
Discharge Summary General Date of Admission Sep 19, 2018 at 13:59 Date of Discharge 09/20/2018 Attending Physician: TAMRA BULLARD MD Specialist/Consultants Involve: SHANTA RAM MD Discharge Summary PROCEDURES PERFORMED DURING STAY: Valenzuela catheter inserted ADMITTING DIAGNOSES: 1. Dysuria with pelvic pressure DISCHARGE DIAGNOSES: 1. 6.8 cm Enlarged prostate with mass effect, consider malignancy 2. UTI, Escherichia coli 3. Escherichia coli bacteremia History of colon cancer/P colectomy Hypertension Peripheral vascular disease Depression GERD COMPLICATIONS/CHIEF COMPLAINT: Prostate Enlargmenyt, Acute On Chronic Kidney Fail. HISTORY OF PRESENT ILLNESS: 82 yo M with hx of enlarged prostate diagnosed over 20 yrs ago for which he was already taking Flomax & Finasteride, presented with difficulty and painful voiding over past few months that recently worsened in the past week along with pelvic pressure. Associated with chills, unintentional 20lb wt loss over past 1 month, decreased appetite, and alternating constipation and diarrhea. He experienced urinary retention and was also noted to have CB on admission and a +UA. HOSPITAL COURSE: He was admitted, started on IV antibiotics for UTI. He was found to have a large 6.8 cm prostate with mass effect to the base of bladder and pelvic sidewall positive lymph nodes on admission CT, as well as marginally elevated PSA. There is concern for malignancy, which was discussed with pt and all qs answered. Urology was consulted. Valenzuela was inserted and urology recommended continue monitoring urine output and follow-up in the clinic for voiding trial. He overall began to feel better, close to his baseline, and had good urine o/p of >2L. Urine culture grew Escherichia coli, which also grew in 1 blood culture bottle. However, second bottle was negative, as well as repeat blood culture. He was started on Pyridium for bladder spasms, and is aware that this may turn his urine dark orange, which already has started to occur in the hospital since starting the medication. He was switched to po antibiotics and safe for discharge home with Valenzuela in place, to f/u o/p in urology clinic next week for further assessment. DISCHARGE MEDICATIONS: Please see below. ALLERGIES: Please see below. PHYSICAL EXAMINATION ON DISCHARGE: VITAL SIGNS: Please see below. General: NAD, A&O, resting comfortably HEENT: NCAT, EOMI, anicteric sclera, MMM CV: distant sounds, RRR RESP: CTAB, no w/r/r/ ABD: obese, soft, NT, ND. Benign EXTREMITIES: 2+ radial pulses b/l, able to move all extremities NEURO: no deficits or acute changes : Valenzuela in place with orange o/p. No pelvic tenderness LABORATORY DATA: Please see below. IMAGIN09/17/2018 CT abdomen pelvis: 1. Hepatic hypodensities up to 3.5 cm similar to prior examination and consistent with hepatic cysts. 2. Significantly enlarged prostate gland measuring greater than 6.8 cm diameter with mass effect on the base of the bladder along with pelvic sidewall lymph nodes concerning for the possibility of prostate cancer. 3. Atherosclerotic changes to the vasculature without aneurysm. 4. No further acute abdominopelvic pathology appreciated. PROGNOSIS: Fair ACTIVITY: As tolerated. DIET: 2g sodium DISPOSITION: home DISCHARGE INSTRUCTIONS: 1. Follow-up with PCP within a week 2. Return to ER for emergency 3. Follow-up with urology in clinic 4. Continue remaining course of antibiotic DISCHARGE CONDITION: Stable. TIME SPENT ON DISCHARGE: Greater than 35 minutes. Vital Signs/I&Os Vital Signs Date Time Temp Pulse Resp B/P (MAP) Pulse Ox O2 Delivery O2 Flow Rate FiO2 09/20/18 08:00 97.5 80 18 130/72 (91) 96 09/17/18 20:59 Room Air I&O- Last 24 Hours up to 6 AM 09/20/18 06:00 Intake Total 2930 ml Output Total 2300 ml Balance 630 ml Laboratory Data Labs 24H Laboratory Tests 2 09/20/18 06:22: Nucleated Red Blood Cells % (auto) 0.0, Anion Gap 8, Glomerular Filtration Rate 59.7, Blood Urea Nitrogen 20H, Creatinine 1.24, Sodium Level 134L, Potassium Level 4.3, Chloride Level 106, Carbon Dioxide Level 20L, Calcium Level 8.9 CBC/BMP Laboratory Tests 09/20/18 06:22 Red Blood Count 4.12 L, Mean Corpuscular Volume 86.4, Mean Corpuscular H emoglobin 28.4, Mean Corpuscular Hemoglobin Concent 32.9, Red Cell Distribution Width 14.1, Calcium Level 8.9 Microbiology Microbiology 09/19/18 Blood Culture - Preliminary, Resulted No growth after 24 hours . All specim... 09/17/18 Blood Culture - Preliminary, Resulted No Growth after 48 hours. All Specime... 09/17/18 Blood Culture - Final, Complete Escherichia Coli 09/18/18 Urine Culture - Final, Complete Escherichia Coli Discharge Medications Scheduled Allopurinol (Allopurinol) 100 Mg Tab, 200 MG PO DAILY, (Reported) Amlodipine Besylate (Amlodipine Besylate) 5 Mg Tab, 5 MG PO DAILY, (Reported) Aspirin (Aspirin EC) 81 Mg Tabec, 81 MG PO QHS, (Reported) Bupropion HCl (Bupropion HCl Xl) 300 Mg Tab, 300 MG PO DAILY, (Reported) Carvedilol (Carvedilol) 12.5 Mg Tab, 12.5 MG PO BID, (Reported) Cefdinir (Cefdinir) 300 Mg Cap, 300 MG PO BID Esomeprazole Magnesium Trihydr (Nexium) 40 Mg Cap, 40 MG PO QHS, (Reported) Finasteride (Finasteride) 5 Mg Tab, 5 MG PO DAILY, (Reported) Furosemide (Furosemide) 20 Mg Tab, 20 MG PO DAILY, (Reported) Pravastatin Sod (Pravastatin Sodium) 40 Mg Tab, 60 MG PO QHS, (Reported) Spironolactone (Spironolactone) 25 Mg Tab, 12.5 MG PO DAILY, (Reported) Tamsulosin Hydrochloride (Flomax) 0.4 Mg Cap, 0.4 MG PO QHS, (Reported) Scheduled PRN Docusate Sodium (Colace) 100 Mg Cap, 100 MG PO DAILY PRN for CONSTIPATION, (Reported) Nitroglycerin (Nitrostat) 0.4 Mg Subl, 0.4 MG SL NITRO PRN for CHEST PAIN, (Reported) Allergies Coded Allergies: meperidine (Verified Allergy, Unknown, 09/17/18) GME ATTESTATION GME ATTESTATION My faculty preceptor for this patient encounter was physically present during the encounter and was fully available. All aspects of the patient interview, examination, medical decision making process, and medical care plan development were reviewed and approved by the faculty preceptor. The faculty preceptor is aware and concurs with the plan as stated in the body of this note and will attest to such by his/her cosignature. MODESTA ESTRADA DO Sep 20, 2018 11:21
[2018-09-20] MEDS ORDERED: PHEN-500 PO (13:01)
== END 2018-09-20 13:15 | disposition home or self-care (01) | DRG 683 ==
LOC: M ED 20:52 → M ED INP 20:53 → M MS5PR 09-18 04:15 → OBSVTOIN 09-19 13:59
PROVIDERS: ADMIT Student in an Organized Health Care Education/Training Program; ATTEND Internal Medicine
DX: N17.9 Acute kidney failure, unspecified (principal); N39.0 Urinary tract infection, site not specified; N40.0 Benign prostatic hyperplasia without lower urinary tract symptoms; I10 Essential (primary) hypertension; R33.9 Retention of urine, unspecified; I73.9 Peripheral vascular disease, unspecified; F32.9 Major depressive disorder, single episode, unspecified; K21.9 Gastro-esophageal reflux disease without esophagitis; Z85.038 Personal history of other malignant neoplasm of large intestine; B96.20 Unspecified Escherichia coli [E. coli] as the cause of diseases classified elsewhere; Z90.49 Acquired absence of other specified parts of digestive tract; Z79.82 Long term (current) use of aspirin; Z79.899 Other long term (current) drug therapy; Z88.8 Allergy status to other drugs, medicaments and biological substances; Z95.820 Peripheral vascular angioplasty status with implants and grafts